=== PATIENT | female | born 1985 | race Two or more races ===

== ENCOUNTER → 2024-07-20 | Outpatient (CLI) | payer BC, SELFPAY ==
--- NOTE | 2024-07-20 15:30 | XR_ITS ---
Examination: Breast ultrasound, unilateral, left complete Date and time of exam: July 20, 2024 1545 hours INDICATIONS: Palpable lump lower left breast lump beginning to months ago Technique: Real-time weir scale ultrasonographic imaging performed left breast including all 4 quadrants as well as nipple retroareolar and axillary region. Findings: No cystic or solid mass Dilated breast ducts. IMPRESSION: BI-RADS Category 2: Benign findings
== END | disposition home or self-care (01) ==
PROVIDERS: PCP Nurse Practitioner Family; Referring Provider Nurse Practitioner Family; Visit Provider Nurse Practitioner Family
DX: N64.4 Mastodynia (principal)
CPT/HCPCS: 76641